=== PATIENT | female | born 1985 | race Caucasian/White ===

== ENCOUNTER → 2016-12-23 | Outpatient (CLI) | payer OTHER ==
[~2016-12-23] MED LIST: ACHYD1T PO; DCS100C PO; DEXL60CA5 PO; DOCU100C37 PO; IBP800T PO; IBUP-1780 PO; MULT-974 PO; MULT1TAB63; OXYC-465 PO; PREN1TAB71 PO; PREN1TAB86 PO; SPRINTEC PO; [UNRECOGNIZED DRUG - OTHER]
--- NOTE | 2016-12-23 12:06 | Diagnostic Imaging Report ---
PROCEDURE: US Thyroid. TECHNIQUE: Multiple real-time grayscale images were obtained of the thyroid in various projections. INDICATION: Thyroid nodule followup. COMPARISONS: 12/23/2015 and 12/26/2014. FINDINGS: The right thyroid lobe is 4 x 1.3 x 1.8 cm. The left lobe is 4.7 x 1.4 x 1.7 cm. There is a hypoechoic nodule measuring 0.5 x 0.4 x 0.5 cm mass seen in the right lobe mid aspect laterally without change from the previous exam. No other nodule is noted. IMPRESSION: Nonspecific 5 mm nodule along the lateral aspect of the mid right thyroid lobe without change from the prior exams. Dictated by: Dictated on workstation # [id number]
== END | disposition home or self-care (01) ==
LOC: RAD 07:47
PROVIDERS: ATTEND Otolaryngology Otolaryngology/Facial Plastic Surgery
DX: E04.1 Nontoxic single thyroid nodule (principal)
CPT/HCPCS: 76536

== ENCOUNTER 2017-12-29 07:22 | Day surgery (SDC) | payer OTHER ==
[~2017-12-29] VITALS: Ht 172.7 cm; Wt 86.2 kg
--- OUTSIDE RECORDS SUMMARY | 2017-12-29 07:27 | XMS REPORT | Continuity of Care Document ---
Author Author [facility] Organization [facility] Address Unknown Phone Unavailable Allergies Active Description Code Type Severity Reaction Onset Reported/Identified Relationship to Patient Clinical Status Yes No Known Drug Allergies [id number] Drug Allergy Unknown N/A 02/19/2016 Medications There is no data. Problems Date Dx Coded Attending Type Code Diagnosis Diagnosed By 02/03/2012 Ot 648.81 ABN GLUCOSE SANDOR-DELIV 02/03/2012 Ot 648.91 OTH CURR COND-DELIVERED 02/03/2012 Ot 652.51 HIGH HEAD AT TERM-DELIV 02/03/2012 Ot 657.01 POLYHYDRAMNIOS,DEL W OR W/O MENTN ANTEPA 02/03/2012 Ot 660.01 OBSTRUC/FET MALPOS-DELIV 02/03/2012 Ot 661.21 UTERINE INERT NEC-DELIV 02/03/2012 Ot 663.31 CORD ENTANGLE NEC-DELIV 02/03/2012 Ot V02.51 GROUP B STREPT CARRIER/SUSPECTED CARRIER 02/03/2012 Ot V06.1 DIPHTHERIA- TETANUS-PERTUSSIS, COMBINED [ 02/03/2012 Ot V27.0 DELIVER- SINGLE LIVEBORN 07/20/2012 Ot 276.51 DEHYDRATION 07/20/2012 Ot 463 ACUTE TONSILLITIS 07/20/2012 Ot 780.60 FEVER, UNSPECIFIED 03/22/2013 ASHWIN KIMBROUGH DO Ot 530.81 ESOPHAGEAL REFLUX 03/22/2013 ASHWIN KIMBROUGH DO Ot 535.50 UNSP GASTRITIS GASTRODUODENITIS W/O ME 03/22/2013 ASHWIN KIMBROUGH DO Ot 553.3 DIAPHRAGMATIC HERNIA 05/30/2014 NEGRA SALGADO, DAVID Davies Ot 626.8 MENSTRUAL DISORDER NEC 06/10/2014 NEGRA SALGADO, DAVID Davies Ot 285.9 06/10/2014 DAVID OMER MD Ot 626.8 06/10/2014 NEGRA SALGADO, DAVID Davies Ot V72.63 06/10/2014 NEGRA SALGADO, DAVID Davies Ot V74.8 07/01/2014 PHUONG SALGADO, LUCA P Ot 241.0 12/26/2014 Ot 786.05 12/26/2014 Ot 786.59 12/26/2014 Ot 276.51 12/26/2014 Ot 787.02 12/26/2014 Ot 789.00 12/26/2014 Ot 790.29 12/26/2014 Ot 278.00 12/26/2014 Ot 790.29 12/26/2014 Ot 278.00 12/26/2014 Ot 787.02 12/26/2014 Ot 790.5 12/26/2014 ASHWIN KIMBROUGH DO Ot V72.84 12/26/2014 NEGRA SALGADO, DAVID Davies Ot 541 12/26/2014 NEGRA SALGADO, DAVID Samson Ot 558.9 12/26/2014 SUDARSHAN PATTON Ot 241.0 12/26/2014 PHUONG SALGADO, LUCA Estrada Ot 241.0 12/26/2014 PHUONG SALGADO, LUCA Estrada Ot 241.0 12/26/2014 NEGRA SALGADO, DAVID Davies Ot 285.9 12/26/2014 NEGRA SALGADO, DAVID Samson Ot 626.8 12/26/2014 NEGRA SALGADO, DAVID Davies Ot V72.63 12/26/2014 NEGRA SALGADO, DAVID Davies Ot V74.8 01/10/2015 PHUONG SALGADO, LUCA Estrada Ot 241.0 12/17/2015 Ot 276.51 DEHYDRATION 12/17/2015 Ot 787.02 NAUSEA ALONE 12/17/2015 Ot 789.00 ABDOMINAL PAIN, UNSPECIFIED SITE 12/17/2015 Ot 790.29 OTHER ABNORMAL GLUCOSE 12/17/2015 Ot 278.00 OBESITY, NOS 12/17/2015 Ot 790.29 OTHER ABNORMAL GLUCOSE 12/17/2015 Ot 278.00 OBESITY, NOS 12/17/2015 Ot 787.02 NAUSEA ALONE 12/17/2015 Ot 790.5 ABN SERUM ENZY LEVEL NEC 12/17/2015 ASHWIN KIMBROUGH DO Ot V72.84 EXAM PRE-OPERATIVE NOS 12/17/2015 NEGRA SALGADO, DAVID Davies Ot 541 APPENDICITIS NOS 12/17/2015 DAVID OMER MD Ot 558.9 NONINF GASTROENTERIT NEC 12/17/2015 SUDARSHAN PATTON TENSILE TESTER Ot 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 GOITER 12/17/2015 LUCA BACA MD Ot 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 GOITER 12/17/2015 LUCA BACA MD Ot 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 GOITER 12/17/2015 DAVID OMER MD Ot 285.9 ANEMIA NOS 12/17/2015 DAVID OMER MD Ot 626.8 MENSTRUAL DISORDER NEC 12/17/2015 DAVID OMER MD Ot V72.63 PRE-PROCEDURAL LABORATORY EXAMINATION 12/17/2015 DAVID OMER MD Ot V74.8 SCREEN-BACTERIAL DIS NEC 12/17/2015 LUCA BACA MD Ot 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 GOITER 12/23/2015 Ot 276.51 DEHYDRATION 12/23/2015 Ot 787.02 NAUSEA ALONE 12/23/2015 Ot 789.00 ABDOMINAL PAIN, UNSPECIFIED SITE 12/23/2015 Ot 790.29 OTHER ABNORMAL GLUCOSE 12/23/2015 Ot 278.00 OBESITY, NOS 12/23/2015 Ot 790.29 OTHER ABNORMAL GLUCOSE 12/23/2015 Ot 278.00 OBESITY, NOS 12/23/2015 Ot 787.02 NAUSEA ALONE 12/23/2015 Ot 790.5 ABN SERUM ENZY LEVEL NEC 12/23/2015 ASHWIN KIMBROUGH DO Ot V72.84 EXAM PRE-OPERATIVE NOS 12/23/2015 DAVID OMER MD Ot 541 APPENDICITIS NOS 12/23/2015 DAVID OMER MD Ot 558.9 NONINF GASTROENTERIT NEC 12/23/2015 SUDARSHAN PATTON TENSILE TESTER Ot 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 GOITER 12/23/2015 LUCA BACA MD Ot 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 GOITER 12/23/2015 LUCA BACA MD Ot 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 GOITER 12/23/2015 DAVID OMER MD Ot 285.9 ANEMIA NOS 12/23/2015 DAVID OMER MD Ot 626.8 MENSTRUAL DISORDER NEC 12/23/2015 DAVID OMER MD Ot V72.63 PRE-PROCEDURAL LABORATORY EXAMINATION 12/23/2015 DAVID OMER MD Ot V74.8 SCREEN-BACTERIAL DIS NEC 12/23/2015 LUCA BACA MD Ot 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 GOITER 12/25/2015 LUCA BACA MD Ot E04.1 NONTOXIC SINGLE THYROID NODULE 12/25/2015 LUCA BACA MD Ot E04.1 NONTOXIC SINGLE THYROID NODULE 01/14/2016 LUCA BACA MD Ot E04.1 NONTOXIC SINGLE THYROID NODULE 02/19/2016 Ot 276.51 DEHYDRATION 02/19/2016 Ot 787.02 NAUSEA ALONE 02/19/2016 Ot 789.00 ABDOMINAL PAIN, UNSPECIFIED SITE 02/19/2016 Ot 790.29 OTHER ABNORMAL GLUCOSE 02/19/2016 Ot 278.00 OBESITY, NOS 02/19/2016 Ot 790.29 OTHER ABNORMAL GLUCOSE 02/19/2016 Ot 278.00 OBESITY, NOS 02/19/2016 Ot 787.02 NAUSEA ALONE 02/19/2016 Ot 790.5 ABN SERUM ENZY LEVEL NEC 02/19/2016 ASHWIN KIMBROUGH DO Ot V72.84 EXAM PRE-OPERATIVE NOS 02/19/2016 DAVID OMER MD Ot 541 APPENDICITIS NOS 02/19/2016 DAVID OMER MD Ot 558.9 NONINF GASTROENTERIT NEC 02/19/2016 SUDARSHAN PATTON TENSILE TESTER Ot 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 GOITER 02/19/2016 LUCA BACA MD Ot 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 GOITER 02/19/2016 LUCA BACA MD Ot 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 GOITER 02/19/2016 DAVID OMER MD Ot 285.9 ANEMIA NOS 02/19/2016 DAVID OMER MD Ot 626.8 MENSTRUAL DISORDER NEC 02/19/2016 DAVID OMER MD Ot V72.63 PRE-PROCEDURAL LABORATORY EXAMINATION 02/19/2016 DAVID OMER MD Ot V74.8 SCREEN-BACTERIAL DIS NEC 02/19/2016 LUCA BACA MD Ot 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 GOITER 02/19/2016 LUCA BACA MD Ot E04.1 NONTOXIC SINGLE THYROID NODULE 02/19/2016 DAVID OMER MD Ot O34.21 MATERNAL CARE FOR SCAR FROM PREVIOUS ALVIN 02/19/2016 DAVID OMER MD Ot Z01.818 ENCOUNTER FOR OTHER PREPROCEDURAL EXAMIN 02/19/2016 DAVID OMER MD Ot Z11.2 ENCOUNTER FOR SCREENING FOR OTHER BACTER 02/22/2016 DAVID OMER MD Ot O34.21 MATERNAL CARE FOR SCAR FROM PREVIOUS ALVIN 02/22/2016 DAVID OMER MD Ot Z01.818 ENCOUNTER FOR OTHER PREPROCEDURAL EXAMIN 02/22/2016 DAVID OMER MD, Ot Z11.2 ENCOUNTER FOR SCREENING FOR OTHER BACTER 02/26/2016 Ot 276.51 DEHYDRATION 02/26/2016 Ot 787.02 NAUSEA ALONE 02/26/2016 Ot 789.00 ABDOMINAL PAIN, UNSPECIFIED SITE 02/26/2016 Ot 790.29 OTHER ABNORMAL GLUCOSE 02/26/2016 Ot 278.00 OBESITY, NOS 02/26/2016 Ot 790.29 OTHER ABNORMAL GLUCOSE 02/26/2016 Ot 278.00 OBESITY, NOS 02/26/2016 Ot 787.02 NAUSEA ALONE 02/26/2016 Ot 790.5 ABN SERUM ENZY LEVEL NEC 02/26/2016 ASHWIN KIMBROUGH DO Ot V72.84 EXAM PRE-OPERATIVE NOS 02/26/2016 DAVID OMER MD Ot 541 APPENDICITIS NOS 02/26/2016 DAVID OMER MD Ot 558.9 NONINF GASTROENTERIT NEC 02/26/2016 SUDARSHAN PATTON TENSILE TESTER Ot 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 GOITER 02/26/2016 LUCA BACA MD Ot 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 GOITER 02/26/2016 LUCA BACA MD Ot 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 GOITER 02/26/2016 DAVID OMER MD Ot 285.9 ANEMIA NOS 02/26/2016 DAVID OMER MD Ot 626.8 MENSTRUAL DISORDER NEC 02/26/2016 DAVID OMER MD Ot V72.63 PRE-PROCEDURAL LABORATORY EXAMINATION 02/26/2016 DAVID OMER MD, Ot V74.8 SCREEN-BACTERIAL DIS NEC 02/26/2016 LUCA BACA MD Ot 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 GOITER 02/26/2016 LUCA BACA MD Ot E04.1 NONTOXIC SINGLE THYROID NODULE 02/29/2016 DAVID OMER MD, Ot K42.9 UMBILICAL HERNIA WITHOUT OBSTRUCTION OR 02/29/2016 DAVID OMER MD, Ot K59.00 CONSTIPATION, UNSPECIFIED 02/29/2016 DAVID OMER MD, Ot L81.9 DISORDER OF PIGMENTATION, UNSPECIFIED 02/29/2016 DAVID OMER MD, Ot O24.410 GESTATIONAL DIABETES MELLITUS IN PREGNAN 02/29/2016 DAVID OMER MD, Ot O34.21 MATERNAL CARE FOR SCAR FROM PREVIOUS ALVIN 02/29/2016 DAVID OMER MD, Ot O69.81X0 LABOR AND DEL COMP BY CORD AROUND NECK, 02/29/2016 DAVID OMER MD, Ot O99.613 DISEASES OF THE DGSTV SYS COMP 02/29/2016 DAVID OMER MD, Ot O99.63 DISEASES OF THE DIGESTIVE SYSTEM COMPLIC 02/29/2016 DAVID OMER MD, Ot O99.713 DISEASES OF THE SKIN, SUBCU COMP PREGNAN 02/29/2016 DAVID OMER MD, Ot Z23 ENCOUNTER FOR IMMUNIZATION 02/29/2016 DAVID OMER MD, Ot Z37.0 SINGLE LIVE 02/29/2016 DAVID OMER MD, Ot Z3A.38 38 WEEKS GESTATION OF 03/22/2016 Ot 276.51 DEHYDRATION 03/22/2016 Ot 787.02 NAUSEA ALONE 03/22/2016 Ot 789.00 ABDOMINAL PAIN, UNSPECIFIED SITE 03/22/2016 Ot 790.29 OTHER ABNORMAL GLUCOSE 03/22/2016 Ot 278.00 OBESITY, NOS 03/22/2016 Ot 790.29 OTHER ABNORMAL GLUCOSE 03/22/2016 Ot 278.00 OBESITY, NOS 03/22/2016 Ot 787.02 NAUSEA ALONE 03/22/2016 Ot 790.5 ABN SERUM ENZY LEVEL NEC 03/22/2016 ASHWIN KIMBROUGH DO Ot V72.84 EXAM PRE-OPERATIVE NOS 03/22/2016 DAVID OMER MD Ot 541 APPENDICITIS NOS 03/22/2016 DAVID OMER MD Ot 558.9 NONINF GASTROENTERIT NEC 03/22/2016 SUDARSHAN PATTON TENSILE TESTER Ot 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 GOITER 03/22/2016 LUCA BACA MD Ot 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 GOITER 03/22/2016 LUCA BACA MD Ot 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 GOITER 03/22/2016 DAVID OMER MD Ot 285.9 ANEMIA NOS 03/22/2016 DAVID OMER MD Ot 626.8 MENSTRUAL DISORDER NEC 03/22/2016 DAIVD OMER MD Ot V72.63 PRE-PROCEDURAL LABORATORY EXAMINATION 03/22/2016 DAVID OMER MD Ot V74.8 SCREEN-BACTERIAL DIS NEC 03/22/2016 LUCA BACA MD Ot 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 GOITER 07/26/2016 Ot 276.51 DEHYDRATION 07/26/2016 Ot 787.02 NAUSEA ALONE 07/26/2016 Ot 789.00 ABDOMINAL PAIN, UNSPECIFIED SITE 07/26/2016 Ot 790.29 OTHER ABNORMAL GLUCOSE 07/26/2016 Ot 278.00 OBESITY, NOS 07/26/2016 Ot 790.29 OTHER ABNORMAL GLUCOSE 07/26/2016 Ot 278.00 OBESITY, NOS 07/26/2016 Ot 787.02 NAUSEA ALONE 07/26/2016 Ot 790.5 ABN SERUM ENZY LEVEL NEC 07/26/2016 ASHWIN KIMBROUGH DO Ot V72.84 EXAM PRE-OPERATIVE NOS 07/26/2016 DAVID OMER MD Ot 541 APPENDICITIS NOS 07/26/2016 DAVID OMER MD Ot 558.9 NONINF GASTROENTERIT NEC 07/26/2016 SUDARSHAN PATTON TENSILE TESTER Ot 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 GOITER 07/26/2016 LUCA BACA MD Ot 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 GOITER 07/26/2016 LUCA BACA MD Ot 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 GOITER 07/26/2016 DAVID OMER MD Ot 285.9 ANEMIA NOS 07/26/2016 DAVID OMER MD Ot 626.8 MENSTRUAL DISORDER NEC 07/26/2016 DAVID OMER MD, Ot V72.63 PRE-PROCEDURAL LABORATORY EXAMINATION 07/26/2016 DAVID OMER MD, Ot V74.8 SCREEN-BACTERIAL DIS NEC 07/26/2016 LUCA BACA MD Ot 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 GOITER 07/26/2016 LUCA BACA MD Ot E04.1 NONTOXIC SINGLE THYROID NODULE 12/25/2016 LUCA BACA MD Ot E04.1 NONTOXIC SINGLE THYROID NODULE 05/22/2017 ALOK SIERRA APRN Ot R10.9 UNSPECIFIED ABDOMINAL PAIN 05/22/2017 ALOK SIERRA APRN Ot R11.10 VOMITING, UNSPECIFIED 05/22/2017 ALOK SIERRA APRN Ot R19.7 DIARRHEA, UNSPECIFIED Procedures Code Description Performed By Performed On 74.1 LOW CERVICAL 01/31/2012 [id number] EXCISION OF ABDOMEN SKIN, EXTERNAL APPRO 02/26/2016 [id number] REPAIR ABDOMINAL WALL, OPEN APPROACH 02/26/2016 [id number] EXTRACTION OF POC, LOW CERVICAL, OPEN AP 02/26/2016 Results Test Result Range Methicillin resistant Staphylococcus aureus (MRSA) screening culture - 12:30 Methicillin resistant Staphylococcus aureus (MRSA) screening culture NEG NRG Complete blood count (CBC) with automated white blood cell (WBC) differential - 02/26/16 06:20 Blood leukocytes automated count (number/volume) 12.2 10*3/uL 4.3-11.0 Blood erythrocytes automated count (number/volume) 4.26 10*6/uL 4.35-5.85 Venous blood hemoglobin measurement (mass/volume) 13.8 g/dL 11.5-16.0 Blood hematocrit (volume fraction) 39 % 35-52 Automated erythrocyte mean corpuscular volume 91 [foz_us] 80-99 Automated erythrocyte mean corpuscular hemoglobin (mass per erythrocyte) 32 pg 25-34 Automated erythrocyte mean corpuscular hemoglobin concentration measurement ( mass/volume) 36 g/dL 32-36 Automated erythrocyte distribution width ratio 12.7 % 10.0-14.5 Automated blood platelet count (count/volume) 153 10*3/uL 130-400 Automated blood platelet mean volume measurement 10.7 [foz_us] 7.4-10.4 Automated blood neutrophils/100 leukocytes 73 % 42-75 Automated blood lymphocytes/100 leukocytes 17 % 12-44 Blood monocytes/100 leukocytes 8 % 0-12 Automated blood eosinophils/100 leukocytes 3 % 0-10 Automated blood basophils/100 leukocytes 0 % 0-10 Blood neutrophils automated count (number/volume) 8.9 10*3 1.8-7.8 Blood lymphocytes automated count (number/volume) 2.0 10*3 1.0-4.0 Blood monocytes automated count (number/volume) 1.0 10*3 0.0-1.0 Automated eosinophil count 0.3 10*3/uL 0.0-0.3 Automated blood basophil count (count/volume) 0.0 10*3/uL 0.0-0.1 Blood type T Indirect antibody screen panel - 02/26/16 06:20 ABO+Rh group AP NRG Transfusion band number [id number] [facility] Blood group antibody screen NEGATIVE NR Automated blood complete blood count (hemogram) panel - 05/19/17 14:45 Blood leukocytes automated count (number/volume) 6.7 10*3/uL 4.3-11.0 Blood erythrocytes automated count (number/volume) 4.99 10*6/uL 4.35-5.85 Venous blood hemoglobin measurement (mass/volume) 15.0 g/dL 11.5-16.0 Blood hematocrit (volume fraction) 43 % 35-52 Automated erythrocyte mean corpuscular volume 86 [foz_us] 80-99 Automated erythrocyte mean corpuscular hemoglobin (mass per erythrocyte) 30 pg 25-34 Automated erythrocyte mean corpuscular hemoglobin concentration measurement ( mass/volume) 35 g/dL 32-36 Automated erythrocyte distribution width ratio 12.1 % 10.0-14.5 Automated blood platelet count (count/volume) 169 10*3/uL 130-400 Automated blood platelet mean volume measurement 10.0 [foz_us] 7.4-10.4 Comprehensive metabolic panel - 05/19/17 14:45 Serum or plasma sodium measurement (moles/volume) 136 mmol/L 135-145 Serum or plasma potassium measurement (moles/volume) 3.7 mmol/L 3.6-5.0 Serum or plasma chloride measurement (moles/volume) 105 mmol/L 98-107 Carbon dioxide 23 mmol/L 21-32 Serum or plasma anion gap determination (moles/volume) 8 mmol/L 5-14 Serum or plasma urea nitrogen measurement (mass/volume) 16 mg/dL 7-18 Serum or plasma creatinine measurement (mass/volume) 0.90 mg/dL 0.60-1.30 Serum or plasma urea nitrogen/creatinine mass ratio 18 NRG Serum or plasma creatinine measurement with calculation of estimated glomerular filtration rate > NRG Serum or plasma glucose measurement (mass/volume) 104 mg/dL 70-105 Serum or plasma calcium measurement (mass/volume) 9.0 mg/dL 8.5-10.1 Serum or plasma total bilirubin measurement (mass/volume) 0.9 mg/dL 0.1-1.0 Serum or plasma alkaline phosphatase measurement (enzymatic activity/volume) 53 U/L 40-136 Serum or plasma aspartate aminotransferase measurement (enzymatic activity/ volume) 18 U/L 5-34 Serum or plasma alanine aminotransferase measurement (enzymatic activity/volume ) 25 U/L 0-55 Serum or plasma protein measurement (mass/volume) 6.9 g/dL 6.4-8.2 Serum or plasma albumin measurement (mass/volume) 3.7 g/dL 3.2-4.5 Influenza virus A and B antigen detection - 05/19/17 15:40 FLU RESULT NEGATIVE FOR INFLUENZA A AND B ANTIGENS BY IA NRG Complete urinalysis with reflex to culture - 05/19/17 16:00 Urine color determination YELLOW NRG Urine clarity determination CLEAR NRG Urine pH measurement by test strip 7 5-9 Specific gravity of urine by test strip 1.005 1.016- 1.022 Urine protein assay by test strip, semi-quantitative NEGATIVE NEGATIVE Urine glucose detection by automated test strip NEGATIVE NEGATIVE Erythrocytes detection in urine sediment by light microscopy NEGATIVE NEGATIVE Urine ketones detection by automated test strip 1+ NEGATIVE Urine nitrite detection by test strip NEGATIVE NEGATIVE Urine total bilirubin detection by test strip NEGATIVE NEGATIVE Urine urobilinogen measurement by automated test strip (mass/volume) NORMAL NORMAL Urine leukocyte esterase detection by dipstick NEGATIVE NEGATIVE Automated urine sediment erythrocyte count by microscopy (number/high power field) NONE NRG Automated urine sediment leukocyte count by microscopy (number/high power field ) NONE NRG Bacteria detection in urine sediment by light microscopy NEGATIVE NRG Squamous epithelial cells detection in urine sediment by light microscopy RARE NRG Crystals detection in urine sediment by light microscopy NONE NRG Casts detection in urine sediment by light microscopy NONE NRG Mucus detection in urine sediment by light microscopy NEGATIVE NRG Complete urinalysis with reflex to culture NO NRG Encounters ACCT No. Visit Date/Time Discharge Status Pt. Type Provider Facility Loc./Unit Complaint [id number] 05/19/2017 13:40:00 05/19/2017 23:59:59 CLS Outpatient ALOK SIERRA APRN [facility] RAD ACUTE ABDOMINAL PAIN [id number] 12/23/2016 07:47:00 12/23/2016 23:59:59 CLS Outpatient LUCA BACA MD [facility] RAD RT THYROID NODULE [id number] 02/26/2016 06:08:00 02/29/2016 13:00:00 DIS Inpatient DAVID OMER MD [facility] LDRP PREVIOUS SECTION [id number] 02/19/2016 11:39:00 02/19/2016 13:19:00 DIS Outpatient DAVID OMER MD [facility] PREOP PREVIOUS SECTION [id number] 12/23/2015 13:40:00 12/23/2015 23:59:59 CLS Outpatient LUCA BACA MD [facility] RAD R THYROID NODULE [id number] 12/26/2014 08:21:00 12/26/2014 23:59:59 CLS Outpatient LUCA BACA MD [facility] RAD RIGHT THYROID NODULE [id number] 05/30/2014 06:04:00 05/30/2014 10:50:00 DIS Outpatient DAVID OMER MD [facility] SDC DUB [id number] 05/23/2014 12:44:00 05/23/2014 23:59:59 CLS Outpatient DAVID OMER MD [facility] PREOP DUB [id number] 04/22/2014 08:04:00 04/22/2014 23:59:59 CLS Outpatient LUCA BACA MD [facility] RAD NODULE [id number] 12/13/2013 10:30:00 12/13/2013 23:59:59 CLS Outpatient PHUONG SALGADO, LUCA Estrada [facility] RAD RT THYROID NODULE [id number] 11/26/2013 07:14:00 11/26/2013 23:59:59 CLS Outpatient SUDARSHAN PATTON [facility] RAD THYROMEGALY [id number] 11/06/2013 12:09:00 11/06/2013 23:59:59 CLS Outpatient NEGRA SALGADO, DAVID Davies [facility] RAD COLITIS,ENTERITIS, APPENDICITIS [id number] 03/22/2013 11:37:00 03/22/2013 15:30:00 DIS Outpatient ASHWIN KIMBROUGH DO [facility] SDC REFLUX [id number] 03/21/2013 07:13:00 03/21/2013 23:59:59 CLS Outpatient ASHWIN KIMBROUGH DO [facility] PREOP REFLUX [id number] 07/20/2012 11:37:00 Document Registration [id number] 03/30/2012 09:21:00 Document Registration [id number] 03/30/2012 09:11:00 Document Registration [id number] 01/31/2012 02:01:00 Document Registration [id number] 05/04/2011 14:06:00 Document Registration [id number] 04/28/2011 10:54:00 Document Registration [id number] 12/02/2009 15:25:00 Document Registration 0000 05/24/2017 09:48:17 05/24/2017 23:59:59 CLS Outpatient
[2017-12-29 12:15] VITALS: BP 124/83
[2017-12-29] MEDS: LACTATED RINGERS 1,000 ML IV PRN ×2 (12:30→15:07)
[2017-12-29] MEDS ORDERED: FAMOTIDINE 20MG/2ML IV (PEPCID) ONE (12:48)
[2017-12-29] MEDS ORDERED: MIDAZOLAM 2 MG/2 ML (VERSED) VIAL ONE (12:51)
[2017-12-29] MEDS ORDERED: fentaNYL INJECTION 100 MCG/2 ML AMP ONE (12:51)
[2017-12-29] MEDS ORDERED: MULT1TAB69 PO (12:53)
[2017-12-29] MEDS ORDERED: NORG1TAB14 PO (12:53)
[2017-12-29 13:16] LABS: BASOPHILS % (AUTO) 0 % (0-10); EOSINOPHILS % (AUTO) 1 % (0-10); HEMATOCRIT 40 % (35-52); HEMOGLOBIN 13.7 G/DL (11.5-16.0); LYMPHOCYTES # (AUTO) 1.8 X 10^3 (1.0-4.0); LYMPHOCYTES % (AUTO) 35 % (12-44); MEAN CORPUSCULAR HEMOGLOBIN 30 PG (25-34); MEAN CORPUSCULAR HGB CONC 35 G/DL (32-36); MEAN CORPUSCULAR VOLUME 88 FL (80-99); MEAN PLATELET VOLUME 10.5 FL (7.4-10.4); MONOCYTES # (AUTO) 0.4 X 10^3 (0.0-1.0); MONOCYTES % (AUTO) 8 % (0-12); NEUTROPHILS # (AUTO) 2.8 X 10^3 (1.8-7.8); NEUTROPHILS % (AUTO) 56 % (42-75); PLATELET COUNT 221 10^3/uL (130-400); RED BLOOD COUNT 4.51 10^6/uL (4.35-5.85); RED CELL DISTRIBUTION WIDTH 12.8 % (10.0-14.5)
[2017-12-29] MEDS ORDERED: D5 LR IV SOLUTION 1,000 ML IV SCH (14:11)
--- NOTE | 2017-12-29 14:11 | Progress Note-Pre Operative ---
Pre-Operative Progress Note H&P Reviewed The H&P was reviewed, patient examined and no changes noted. Date Seen by Provider: Dec 29, 2017 Time Seen by Provider: 14:10 Date H&P Reviewed: Dec 29, 2017 Time H&P Reviewed: 14:10 Pre-Operative Diagnosis: DUB/Masss in uterus DAVID OMER MD Dec 29, 2017 2:11 pm
[2017-12-29] MEDS ORDERED: OXYC-471 PO (14:14)
[2017-12-29] MEDS ORDERED: PROMETHAZINE INJ 25 MG/ML (PHENERGAN) AMP IM ONE (14:15)
[2017-12-29] MEDS ORDERED: ESTROGENS CONJ IV 25 MG/5 ML (PREMARIN) VIAL IVP ONE (14:15)
[2017-12-29] MEDS ORDERED: MEPERIDINE (DEMEROL) INJ 100 MG/ML IM ONE (14:15)
[2017-12-29] MEDS ORDERED: oxyCODONE/APAP 5/325MG (PERCOCET 5) TABLET PO PRN (14:15)
[2017-12-29] MEDS ORDERED: KETOROLAC 30 MG/ML VIAL IVP ONE (14:15)
[2017-12-29] MEDS ORDERED: ONDANSETRON 4 MG/2 ML (SDV) Z0FRAN IVP PRN ×2 (14:15→15:30)
--- NOTE | 2017-12-29 14:16 | Discharge Instructions ---
Discharge Instructions Discharge Medications New, Converted or Re-Newed RX: RX on Chart Patient Instructions Patient Instructions: as directed Return to The Hospital For: as directed Activity & Diet Discharge Diet: No Restrictions Activity as Tolerated: Yes Orders-Post D/C & Referrals Follow Up Appt: Call to make follow up appt. for patient in 2 weeks. Activity: When wide awake, as tolerated. Diet: As tolerated-Clear Liquids only if nauseated. may shower, swim, spritz, or tub bathe as desired. No driving for 24 hours, no alcoholic beverages for 24 hours, and nothing per vagina (no tampons, douching, or intercourse) for 1 weeks. Patient to return to the clinic as soon as possible for: Temperature greater than 101F, Severe Pain, Foul discharge from incision or vagina, Excessive Bleeding (more than a period). DAVID OMER MD Dec 29, 2017 2:16 pm
--- NOTE | 2017-12-29 14:20 | Progress Note-Post Operative ---
Post-Operative Progess Note Surgeon (s)/Tax Attorney (s) Surgeon DAVID OMER MD Tax Attorney: none Pre-Operative Diagnosis DUB/Masss in uterus Post-Operative Diagnosis same with path pending Procedure & Operative Findings Date of Procedure 12/29/17 Procedure Performed/Findings hysteroscopy with directed biopsy and D&C Anesthesia Type GETA Estimated Blood Loss Estimated blood loss (mL): min Specimens/Packing Specimens Removed directed biopsies and endometrial curettings Packing: none DAVID OMER MD Dec 29, 2017 2:20 pm
[2017-12-29] MEDS ORDERED: WATER (STERILE) FOR INJECTION 10 ML ONE (14:22)
[2017-12-29] MEDS ORDERED: KETOROLAC 30 MG/ML VIAL ONE (14:48)
[2017-12-29] MEDS ORDERED: ceFAZolin 1,000 MG (ANCEF) VIAL ONE (15:11)
[2017-12-29] MEDS ORDERED: DEXAMETHASONE 10 MG/ML (DECADRON) 1 ML VIAL ONE (15:18)
[2017-12-29] MEDS ORDERED: ONDANSETRON 4 MG/2 ML (SDV) Z0FRAN ONE (15:18)
[2017-12-29] MEDS ORDERED: SEVOFLURANE (ULTANE) 15 ML INHAL SOLN ONE (15:18)
[2017-12-29] MEDS ORDERED: proPOfol 200 MG/20 ML (DIPRIVAN) VIAL IV ONE ×2 (15:18)
[2017-12-29] MEDS ORDERED: LIDOCAINE PF 2% 5 ML (XYLOCAINE) VIAL ONE (15:18)
[2017-12-29] MEDS: morphine INJ 10 MG/ML 1ML (SYR OR VIAL) IVP PRN ×2 (15:42→15:46)
[2017-12-29] MEDS ORDERED: morphine INJ 10 MG/ML 1ML (SYR OR VIAL) ONE (15:42)
[2017-12-29] MEDS: ESTROGENS CONJ IV 25 MG/5 ML (PREMARIN) VIAL ONE ×2 (15:56→16:23)
[2017-12-29 16:10] VITALS: BP 134/88
[2017-12-29 16:40] VITALS: BP 133/86
--- NOTE | 2017-12-29 16:57 | OPERATIVE REPORT ---
DATE OF SERVICE: 12/29/2017 PREOPERATIVE DIAGNOSES: Dysfunctional uterine bleeding, intrauterine mass and a history of endometrial polyp. POSTOPERATIVE DIAGNOSES: Dysfunctional uterine bleeding, intrauterine mass and a history of endometrial polyp with likely recurrent endometrial polyps. OPERATIVE PROCEDURE: Hysteroscopy with directed biopsy and D and C. OPERATIVE DESCRIPTION: With the patient in the supine position under satisfactory general anesthesia, she was repositioned in the dorsal lithotomy position in the [facility] stirrups and prepped and draped in the usual fashion for vaginal surgery. The urinary bladder had been emptied by the patient prior to entering the OR. A weighted speculum was placed in the posterior points of the vagina. The cervix was exposed and grasped anteriorly with a single tooth tenaculum. Uterus was sounded to 9 cm with the uterine sound. The cervix was then serially dilated with Herve dilators to accommodate a hysteroscope, which was introduced and using LR as a distending medium, the endometrial cavity was examined. There was a carpet of polypoid-appearing tissue on the anterior uterine wall just distal to the right tubal ostium. There was a polypoid mass emanating from the posterior uterine wall. The posterior uterine wall mass was grasped and biopsied off directly. A [employer] liqu[employer] sales representative biopsy was taken from the right anterior uterine wall area that was suspicious for polyps. Both of those were labeled appropriately and sent to pathology for permanent section. The endometrial cavity was then sharply curettaged in all 4 quadrants to good uterine cry. The hysteroscope was reintroduced and the endometrial cavity evacuated of all blood clot and debris. There was no remaining abnormal pathology. There was no significant bleeding. The hysteroscope was removed as was the tenaculum. There was some bleeding from the puncture sites on the tenaculum. This was controlled with application of a silver nitrate stick. With hemostasis assured, sponge and needle counts correct. Estimated blood loss was minimal. The patient was uneventfully awakened from her general anesthesia and transferred to recovery room in stable condition with plans for discharge home PAR. Job ID: [id number] DocumentID: [id number] Dictated Date: 12/29/2017 15:08:09 [employer] Well Contractor Date: 12/29/2017 16:57:07 Dictated By: DAVID OMER MD
[2017-12-29 17:05] VITALS: BP 129/82
[2017-12-29 18:00] VITALS: BP 127/85
[2017-12-29 18:10] VITALS: BP 127/85
== END 2017-12-29 18:10 | disposition home or self-care (01) ==
LOC: SDC 07:22
PROVIDERS: ATTEND Obstetrics & Gynecology
DX: N93.8 Other specified abnormal uterine and vaginal bleeding (principal)
CPT/HCPCS: 36415; 84703; 85025; 87081

== ENCOUNTER → 2018-11-28 | Outpatient (CLI) | payer OTHER ==
[~2018-11-28] MED LIST changes: +MULT1TAB69 PO; +NORG1TAB14 PO; +OXYC-471 PO
--- NOTE | 2018-11-28 12:15 | Diagnostic Imaging Report ---
PROCEDURE: US Thyroid. TECHNIQUE: Multiple Real-time grayscale images were obtained of the thyroid in various projections. INDICATION: Thyroid nodule. FINDINGS: The thyroid ultrasound exam performed on 12/23/2016 noted a 0.5 x 0.4 x 0.5 cm hypoechoic nodule in the right lobe of the thyroid. This finding did seem stable when compared to the prior exam of 12/23/2015. On this study, the hypoechoic nodule is again visualized and virtually unchanged in size or appearance. There is also a small 0.4 x 0.3 x 0.3 cm hypoechoic area in the midportion of the left lobe. This finding is stable as well. The thyroid gland itself is not enlarged with the right lobe measuring 4.9 x 1.5 x 2.0 cm and the left lobe estimated to be 4.8 x 1.3 x 1.5 cm (normal gland size 4-5 x 2 x 2 cm or less). IMPRESSION: The small hypoechoic lesions in each lobe of the thyroid seen previously appear stable. No new abnormality has developed. Dictated by: Dictated on workstation # [id number]
== END ==
LOC: RAD 09:28
PROVIDERS: ATTEND Otolaryngology Otolaryngology/Facial Plastic Surgery
DX: E04.1 Nontoxic single thyroid nodule (principal); E07.89 Other specified disorders of thyroid
CPT/HCPCS: 76536

== ENCOUNTER → 2020-11-19 | Outpatient (CLI) | payer OTHER ==
[~2020-11-19] MED LIST changes: +MULT-567 PO; -MULT1TAB69 PO; -OXYC-465 PO; -OXYC-471 PO; +OXYC-556 PO; +OXYC1TAB11 PO
--- NOTE | 2020-11-19 18:15 | Diagnostic Imaging Report ---
PROCEDURE: US Thyroid. TECHNIQUE: Multiple real-time grayscale images were obtained of the thyroid in various projections. INDICATION: Thyroid nodule. COMPARISON: Exam compared with study of 11/28/2018. The right thyroid lobe measured 5.1 x 1.4 x 1.9 cm. Previous hypoechoic right lobe nodule present on the prior can no longer be identified. Right lobe parenchyma appeared homogenous and unremarkable with normal color Doppler blood flow. The left thyroid lobe is 4.7 x 1.5 x 1.2 cm and contained a tiny 3 mm maximal diameter simple cyst in its middle pole laterally. No new or suspicious mass. No adverse development. IMPRESSION: Tiny benign 3 mm left lobe cysts, stable. Previously seen right lobe nodule no longer identified. No suspicious finding. No further workup needed. Dictated by: Dictated on workstation # [id number]
== END ==
LOC: RAD 13:32
PROVIDERS: ATTEND Otolaryngology Otolaryngology/Facial Plastic Surgery
DX: E04.1 Nontoxic single thyroid nodule (principal)
CPT/HCPCS: 76536

== ENCOUNTER → 2020-12-18 | Outpatient (CLI) | payer OTHER ==
--- NOTE | 2020-12-18 14:28 | Diagnostic Imaging Report ---
INDICATION: Palpable lump right breast. No prior mammograms are available for comparison. Unilateral right 2-D and 3-D diagnostic mammography was performed with CAD. A BB marker was placed at the area of palpable abnormality in the upper retroareolar right breast. The right breast is heterogeneously dense, limiting the sensitivity of mammography. No mass or malignant appearing microcalcifications are seen. Right axilla is unremarkable. IMPRESSION: BI-RADS 0 No mammographic features suspicious for malignancy are identified. Even so, directed sonographic interrogation of the area of palpable abnormality in the right breast is recommended and will be performed today. ACR BI-RADS Category 0: Incomplete. (Needs additional imaging evaluation). Result letter will be mailed to the patient. Note: At least 10% of breast cancer is not imaged by mammography. Dictated by: Dictated on workstation # [id number]
--- NOTE | 2020-12-18 16:10 | Diagnostic Imaging Report ---
INDICATION: Right breast lump. COMPARISON: Correlation is made to diagnostic mammogram earlier the same day. EXAMINATION: Right breast ultrasound. FINDINGS: Sonographic interrogation of the area of lump in the right breast was performed. This corresponds to the 11-12 o'clock periareolar region. No sonographic abnormality is detected. No solid or cystic mass is detected. IMPRESSION: No sonographic abnormality is detected. ACR BI-RADS Category 1: Negative. Result letter will be mailed to the patient. Note: At least 10% of breast cancer is not imaged by mammography. Dictated on workstation # [id number]
== END ==
LOC: RAD 14:00
PROVIDERS: ATTEND Obstetrics & Gynecology
DX: N63.10 Unspecified lump in the right breast, unspecified quadrant (principal)
CPT/HCPCS: 76642; 77065; G0279

== ENCOUNTER → 2022-03-08 | Outpatient (CLI) | payer OTHER ==
--- NOTE | 2022-03-08 16:17 | Diagnostic Imaging Report ---
INDICATION: Routine screening. COMPARISON: 12/18/2020. TECHNIQUE: 2D and 3D bilateral screening mammography was performed with CAD. FINDINGS: Both breasts are heterogeneously dense, limiting the sensitivity of mammography. The density appears slightly more prominent in the medial right breast at anterior depth. Additional views of this area are recommended. The left breast is unremarkable. No malignant-appearing microcalcifications are seen. The axillae are unremarkable. IMPRESSION: Right breast density. Additional views are recommended for further evaluation. ACR BI-RADS Category 0: Incomplete. (Needs additional imaging evaluation). Result letter will be mailed to the patient. Note: At least 10% of breast cancer is not imaged by mammography. Dictated by: Dictated on workstation # [id number]
== END ==
LOC: RAD 13:16
PROVIDERS: ATTEND Obstetrics & Gynecology
DX: Z12.31 Encounter for screening mammogram for malignant neoplasm of breast (principal)
CPT/HCPCS: 77063; 77067

== ENCOUNTER → 2022-03-11 | Outpatient (CLI) | payer OTHER ==
--- NOTE | 2022-03-11 15:37 | Diagnostic Imaging Report ---
INDICATION: Right breast density. Patient presents for additional views. CORRELATION is made with the screening study from 03/08/2022. Unilateral right 2-D and 3-D diagnostic mammography was performed. This includes spot compression CC and ML views as well as conventional 90 degree lateral views. There is some residual density in the inner right breast at approximately the 3:00 location, 3-4 cm from the nipple. This may represent fibroglandular tissue. No suspicious calcifications are seen. IMPRESSION: BI-RADS 0 There is some residual density in the inner right breast, perhaps fibroglandular tissue. Even so, directed sonographic interrogation of this area is recommended and will be performed today. ACR BI-RADS Category 0: Incomplete. (Needs additional imaging evaluation). Result letter will be mailed to the patient. Note: At least 10% of breast cancer is not imaged by mammography. Dictated by: Dictated on workstation # [id number]
--- NOTE | 2022-03-14 08:39 | Diagnostic Imaging Report ---
Indication: Right breast lump. Correlation is made with the diagnostic mammogram earlier the same day and screening mammogram from 03/08/2022. Sonographic interrogation retroareolar right breast was performed. No sonographic abnormality is seen. No solid or cystic mass is detected. 2-4 o'clock location was evaluated and no underlying abnormality is seen. IMPRESSION: BI-RADS Category 1 No suspicious sonographic abnormality is identified. Continued close clinical and self breast exams recommended to confirm stability of the palpable abnormality. ACR BI-RADS Category 1: Negative. Dictated by: Dictated on workstation # [id number]
== END ==
LOC: RAD 14:15
PROVIDERS: ATTEND Obstetrics & Gynecology
DX: N63.10 Unspecified lump in the right breast, unspecified quadrant (principal)
CPT/HCPCS: 77065; G0279